=== PATIENT | female | born 1965 | race Caucasian/White ===

== ENCOUNTER → 2016-11-07 | Outpatient (CLI) | payer BC ==
--- NOTE | 2016-11-07 13:19 | MAMMOGRAPHY REPORT ---
BILATERAL DIGITAL DIAGNOSTIC MAMMOGRAM TOMOSYNTHESIS WITH CAD: 11/07/2016 CLINICAL HISTORY: 50-year-old woman with a history of benign biopsy in the 6:30 right breast present s for follow-up of other benign appearing masses scattered throughout each breast. Several mildly c omplicated and anechoic simple cysts were previously documented on ultrasound. TECHNIQUE: Bilateral breast tomosynthesis in addition to standard 2D mammography was performed. Curr ent study was also evaluated with a Computer Aided Detection (CAD) system. COMPARISON: Comparison is made to exams dated: 05/24/2016 ultrasound biopsy, 05/24/2016 mammogram, mammogram, 05/09/2016 ultrasound, and 05/02/2016 mammogram - [facility]. BREAST COMPOSITION: There are scattered areas of fibroglandular density in both breasts. FINDINGS: There is a stable ribbon shaped metallic biopsy marker in the 6:00 middle one third of the right breast, from recent benign ultrasound-guided core biopsy. Lobulated and circumscribed masses scattered throughout the right greater than left breast are all stable in size and appearance kavita ring to the prior mammograms. In particular, an oval circumscribed 3 mm mass in the lateral posteri or right breast on the CC tomosynthesis slice 32 is unchanged. A lobulated elongated 10 mm mass in the lower outer middle one third of the right breast (slice 12) is unchanged. A circumscribed lobul ated 5 mm mass just medial and anterior to the biopsy marker clip on slice 10 is also unchanged. A 5.2 mm circumscribed lobulated mass in the medial, middle one third of the left breast on CC slice 4 2 is unchanged. No new suspicious mass, focal area of architectural distortion or suspicious microc alcifications are identified bilaterally. Another six-month follow-up bilateral diagnostic mammogra m is recommended to ensure at least one year stability of the above masses. IMPRESSION: ACR-BI-RADS CATEGORY 3: PROBABLY BENIGN Stable mammographic appearance of the breasts including multiple circumscribed benign appearing mass es bilaterally. One of the masses in the right 6:30 breast was biopsied and yielded benign patholog y. Another short interval follow-up bilateral diagnostic mammogram and possible repeat ultrasound i s recommended to ensure at least one year stability. These results and recommendations were discussed with the patient at the time of the exam. Approximately 10% of breast cancers are not detected with mammography. A negative mammographic repor t should not delay biopsy if a clinically suggestive mass is present. Kristine Mixon M.D. ay/:11/07/2016 11:09:23 Stringed Instrument Repairer: Mana Barkley, [facility] letter sent: Follow Up Recommended 3 BI-RADS Code: ACR-BI-RADS Category 3: Probably Benign
== END | disposition home or self-care (01) ==
LOC: C.MAMM 10:34
PROVIDERS: ATTEND Nurse Practitioner
DX: Z09 Encounter for follow-up examination after completed treatment for conditions other than malignant neoplasm (principal); N63 Unspecified lump in breast

== ENCOUNTER → 2017-10-09 | Outpatient (CLI) | payer BC ==
--- NOTE | 2017-10-09 10:50 | DIAGNOSTIC IMAGING REPORT ---
L KNEE 1 OR 2 VIEWS ROUTINE CLINICAL HISTORY: 51 years-old Female presenting with STAT* ACUTE PAIN OF L KNEE. TECHNIQUE: Frontal and lateral views of the left knee were obtained. COMPARISON: None. FINDINGS: No acute fracture or malalignment. No advanced degenerative change. Moderate knee joint effusion. IMPRESSION: 1. Moderate knee joint effusion. 2. No acute osseous injury or advanced degenerative change. Electronically signed by: Anderson Colvin M.D. 10/09/2017 10:48 AM Dictated Date/Time: 10/09/2017 10:47 AM
== END | disposition home or self-care (01) ==
LOC: C.RAD1850 10:28
PROVIDERS: ATTEND Nurse Practitioner Family
DX: M25.562 Pain in left knee (principal)

== ENCOUNTER → 2017-10-11 | Outpatient (CLI) | payer BC | END | disposition home or self-care (01) | LOC: C.RDSM 14:05 | PROVIDERS: ATTEND Orthopaedic Surgery Sports Medicine | DX: M25.562 Pain in left knee (principal) ==

== ENCOUNTER → 2017-10-18 | Outpatient (CLI) | payer BC ==
--- NOTE | 2017-10-18 09:13 | DIAGNOSTIC IMAGING REPORT ---
MRI LEFT KNEE NO CONTRAST CLINICAL HISTORY: Left knee pain and swelling. Knee gives out. COMPARISON STUDY: Conventional radiographic study dated 10/11/2017 FINDINGS: Imaging was performed in the axial, sagittal, and coronal planes. There is a small joint effusion. There are no areas of marrow edema to indicate occult fracture or bone bruise. The anterior and posterior cruciate ligaments appear intact. The medial and lateral collateral ligaments appear intact. No meniscal tears are visualized. Increased signal within the infrapatellar tendon, is likely secondary to mucoid degeneration. IMPRESSION: 1. No evidence of occult fracture or bone bruise 2. No meniscal tears identified 3. No evidence of cruciate or collateral ligament disruption 4. Small joint effusion 5. Increased signal within the infrapatellar tendon, likely secondary to mucoid degeneration Electronically signed by: Van Chilel M.D. 10/18/2017 9:12 AM Dictated Date/Time: 10/18/2017 9:04 AM
== END | disposition home or self-care (01) ==
LOC: C.MRIBC 08:04
PROVIDERS: ATTEND Orthopaedic Surgery Sports Medicine
DX: M25.562 Pain in left knee (principal); S83.249A Other tear of medial meniscus, current injury, unspecified knee, initial encounter; X58.XXXA Exposure to other specified factors, initial encounter; M25.462 Effusion, left knee